=== PATIENT | male | born 1970 | race African-American/Black ===

== ENCOUNTER 2020-04-09 13:02 | Outpatient (CLI) | payer OTHER ==
--- NOTE | 2020-04-09 14:46 | ULT ---
THYROID ULTRASOUND: INDICATION: Thyroid mass. COMPARISON: No comparison studies. FINDINGS: Both lobes of the thyroid are homogeneous and appear normal size and appearance. Right lobe measures 4.7 x 2.1 x 2.0 cm. Left lobe measures 5.6 x 2.2 x 1.9 cm. Isthmus appears normal measuring 0.7 cm. No evidence of nodule or thyroid mass. IMPRESSION: Normal thyroid ultrasound. POS: AGW
== END 2020-04-09 13:03 | disposition home or self-care (01) ==
LOC: BICULT 13:02
PROVIDERS: ATTEND Specialist
DX: E07.89 Other specified disorders of thyroid (principal)
CPT/HCPCS: 76536

== ENCOUNTER 2020-07-17 17:43 | Emergency (ER) | payer OTHER ==
[2020-07-17 18:30] LABS: #Lymphocytes 1.7 thou/uL (1.20-3.40); #Monocytes 0.7 thou/uL (0.11-0.59); #Neutrophils 3.5 thou/uL (1.40-6.50); %Basophils 0.8 % (0.0-1.0); %Eosinophils 0.7 % (0.0-10.0); %Lymphocytes 28.1 % (21.0-51.0); %Monocytes 11.2 % (0.0-10.0); %Neutrophils 59.3 % (42.0-75.0); Hemoglobin 14.5 g/dL (14.0-18.0); Mean Corpuscular HGB CONC 33.5 g/dL (32.0-36.0); Mean Corpuscular Hemoglobin 28.8 pg (27.0-31.0); Mean Corpuscular Volume 85.9 fL (78.0-98.0); Mean Platelet Volume 8.2 fL (7.4-10.4); Platelet Count 222 thou/uL (130-400); RBC Distribution Width 13.8 % (11.5-14.5); Red Blood Cell (RBC) Count 5.03 mill/uL (4.70-6.10)
[2020-07-17 18:55] LABS: ALT (SGPT) 14 U/L (8-55); AST (SGOT) 15 U/L (5-34); Albumin 3.9 g/dL (3.5-5.0); Alkaline Phosphatase 71 U/L (40-110); Anion Gap 11 mmol/L (10-20); BUN (Urea Nitrogen) 10 mg/dL (8.9-20.6); Bilirubin, Total 0.4 mg/dL (0.2-1.2); Calc. Creatinine Clearance 0 mL/min (70-130); Calcium 8.5 mg/dL (7.8-10.44); Carbon Dioxide 24 mmol/L (22-29); Chloride 108 mmol/L (98-107); Estimated GFR-MDRD Greater than 90; Globulin 2.5 g/dL (2.4-3.5); Glucose 101 mg/dL (70-105); Potassium 3.7 mmol/L (3.5-5.1); Protein, Total 6.4 g/dL (6.0-8.3); Sodium 139 mmol/L (136-145)
--- NOTE | 2020-07-17 18:56 | RAD ---
4 views left knee: 07/17/2020 COMPARISON: None HISTORY: Pain, trauma FINDINGS: There are severe degenerative changes involving the medial compartment with joint space faby rowing, subchondral sclerosis, and osteophyte formation. Multiple posterior calcified intra-articular loose bodies are noted. There is prominent patellofemoral joint space narrowing with associated osteophyte formation. There is a small knee joint effusion. No displaced fracture or dislocation is seen. IMPRESSION: Prominent multicompartment degenerative joint disease with prominent posterior calcified intra-articular loose bodies.
--- NOTE | 2020-07-17 18:57 | RAD ---
Portable frontal chest radiograph: 07/17/2020 COMPARISON: None HISTORY: Chest pain FINDINGS: Lungs are clear. Heart and mediastinal contours appear within normal limits. IMPRESSION: No acute findings.
--- NOTE | 2020-07-17 20:03 | CT ---
CT BRAIN WITHOUT CONTRAST: 07/17/20 HISTORY: Previous history of stroke. ME, hypertension. Concern for acute stroke. COMPARISON: None. FINDINGS: There is encephalomalacia in the right temporal lobe with mild ipsilateral ex vacuo dilatation of the right temporal horn. The remainder of the ventricular system is otherwise normal. No acute infarct, hemorrhage, midline shift or abnormal extra-axial fluid collections are seen. The bony calvarium is i ntact. The visualized paranasal sinuses and mastoid air cells are well aerated. There is an old infar ct in the superior aspect of the left parietal lobe. IMPRESSION: No CT evidence of acute intracranial process. POS: MZA
--- NOTE | 2020-07-20 13:15 | EKG ---
Test Reason : Blood Pressure : / mmHG Vent. Rate : 088 BPM Atrial Rate : 088 BPM P-R Int : 176 ms QRS Dur : 090 ms QT Int : 346 ms P-R-T Axes : 049 -12 023 degrees QTc Int : 418 ms Normal sinus rhythm Moderate voltage criteria for LVH, may be normal variant Nonspecific ST and T wave abnormality Abnormal ECG Confirmed by OANH Beckwith, CAROL ([id number]), editorial manager DAVID PALM ([id number]) on 07/20/2020 1:15:05 PM Referred By: Confirmed By:CAROL HUGO M.D.
== END 2020-07-17 21:13 | disposition left against medical advice (07) ==
LOC: ERS 17:43
DX: R07.89 Other chest pain (principal); S40.812A Abrasion of left upper arm, initial encounter; S40.811A Abrasion of right upper arm, initial encounter; R22.42 Localized swelling, mass and lump, left lower limb; I10 Essential (primary) hypertension; I25.2 Old myocardial infarction; E78.00 Pure hypercholesterolemia, unspecified; E03.9 Hypothyroidism, unspecified; F41.9 Anxiety disorder, unspecified; F32.9 Major depressive disorder, single episode, unspecified; F17.210 Nicotine dependence, cigarettes, uncomplicated; Y04.8XXA Assault by other bodily force, initial encounter
CPT/HCPCS: 36415; 70450; 71045; 80053; 84484; 85025; 93005

== ENCOUNTER 2020-07-17 23:59 | Observation (INO) | payer OTHER ==
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
[2020-07-18 00:42] LABS: #Basophils 0.1 thou/uL (0.0-0.2); #Eosinphils 0.1 thou/uL (0.0-0.7); #Lymphocytes 2.1 thou/uL (1.20-3.40); #Monocytes 0.8 thou/uL (0.11-0.59); #Neutrophils 3.6 thou/uL (1.40-6.50); %Basophils 0.9 % (0.0-1.0); %Eosinophils 1.3 % (0.0-10.0); %Lymphocytes 31.2 % (21.0-51.0); %Neutrophils 54.6 % (42.0-75.0); Hemoglobin 14.8 g/dL (14.0-18.0); Mean Corpuscular HGB CONC 33.4 g/dL (32.0-36.0); Mean Corpuscular Hemoglobin 28.4 pg (27.0-31.0); Mean Corpuscular Volume 85.3 fL (78.0-98.0); Mean Platelet Volume 9.1 fL (7.4-10.4); Platelet Count 147 thou/uL (130-400); RBC Distribution Width 13.7 % (11.5-14.5); Red Blood Cell (RBC) Count 5.19 mill/uL (4.70-6.10); White Blood Cell (WBC) Count 6.6 thou/uL (4.8-10.8)
[2020-07-18] MEDS ORDERED: Nitroglycerin 0.4 MG TAB 1 EACH ONE (00:53)
[2020-07-18 01:06] LABS: ALT (SGPT) 15 U/L (8-55); AST (SGOT) 16 U/L (5-34); Albumin 3.9 g/dL (3.5-5.0); Alkaline Phosphatase 72 U/L (40-110); Anion Gap 15 mmol/L (10-20); BUN (Urea Nitrogen) 10 mg/dL (8.9-20.6); Bilirubin, Total 0.4 mg/dL (0.2-1.2); CK (CPK) 280 U/L (30-200); Calc. Creatinine Clearance 0 mL/min (70-130); Calcium 8.7 mg/dL (7.8-10.44); Carbon Dioxide 19 mmol/L (22-29); Chloride 109 mmol/L (98-107); Estimated GFR-MDRD Greater than 90; Globulin 2.8 g/dL (2.4-3.5); Glucose 95 mg/dL (70-105); Lipase 42 U/L (8-78); Potassium 3.7 mmol/L (3.5-5.1); Protein, Total 6.7 g/dL (6.0-8.3); Sodium 139 mmol/L (136-145)
[2020-07-18 01:28] LABS: CKMB 1.5 ng/mL (0-6.6)
[2020-07-18 03:14] VITALS: BMI 28.0
[2020-07-18 05:07] LABS: Troponin I 0.012 ng/mL (< 0.028)
[2020-07-18] MEDS ORDERED: Acetaminophen/Codeine 30-300mg Tablet PO PRN (05:59)
[2020-07-18] MEDS ORDERED: Labetalol HCl 100 MG/20 ML VIAL SLOW IVP PRN (06:00)
[2020-07-18] MEDS ORDERED: hydrALAZINE 20 MG/ML VIAL SLOW IVP PRN (06:00)
[2020-07-18] MEDS ORDERED: Cyclobenzaprine 10 MG TAB PO PRN (06:00)
[2020-07-18] MEDS ORDERED: traZODone HCl 50 MG TAB PO PRN (06:00)
[2020-07-18 07:42] LABS: Troponin I 0.022 ng/mL (< 0.028)
[2020-07-18] MEDS ORDERED: Oxybutynin ER 5 MG TAB PO SCH (09:00)
[2020-07-18] MEDS ORDERED: Pregabalin 50 MG CAP PO SCH (09:00)
[2020-07-18] MEDS ORDERED: Hydrochlorothiazide 25 MG TAB PO SCH (09:00)
[2020-07-18] MEDS ORDERED: Valsartan 80 MG TAB PO SCH (09:00)
[2020-07-18] MEDS ORDERED: FLUoxetine HCl 20 MG CAP PO SCH (09:00)
[2020-07-18] MEDS ORDERED: Aspirin 325 mg Enteric Coated Tablet PO SCH (09:00)
[2020-07-18] MEDS ORDERED: Amlodipine 5 MG TAB PO SCH (09:00)
[2020-07-18] MEDS ORDERED: Hydroxychloroquine Sulfate 200 MG TAB PO SCH (09:00)
[2020-07-18 12:03] VITALS: TEMP 97.9
[2020-07-18 12:28] LABS: SARS-CoV-2 MS2 Positive; SARS-CoV-2 N Gene Negative; SARS-CoV-2 S Gene Negative; SARS-CoV-2 by NAA Not Detected (NotDetected); SARS-CoV-2 orf1ab Negative
[2020-07-18 16:47] VITALS: BP 138/99
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
--- NOTE | 2020-07-20 14:08 | EKG ---
Test Reason : Blood Pressure : / mmHG Vent. Rate : 078 BPM Atrial Rate : 078 BPM P-R Int : 176 ms QRS Dur : 074 ms QT Int : 354 ms P-R-T Axes : 048 -16 010 degrees QTc Int : 403 ms Normal sinus rhythm Left ventricular hypertrophy Nonspecific T wave abnormality Abnormal ECG Confirmed by CHEN ALVES ([id number]), telegraph editor DAVID PALM ([id number]) on 07/20/2020 2:07:47 PM Referred By: Confirmed By:CHEN ALVES
== END 2020-07-18 18:46 | disposition home or self-care (01) ==
LOC: ERS 23:59 → 2SW 07-18 02:42
PROVIDERS: ADMIT Internal Medicine; ATTEND Internal Medicine
DX: R07.89 Other chest pain (principal); I25.2 Old myocardial infarction; I10 Essential (primary) hypertension; E03.9 Hypothyroidism, unspecified; E78.00 Pure hypercholesterolemia, unspecified; E78.5 Hyperlipidemia, unspecified; F41.9 Anxiety disorder, unspecified; F32.9 Major depressive disorder, single episode, unspecified; F17.210 Nicotine dependence, cigarettes, uncomplicated; Z79.82 Long term (current) use of aspirin; Z79.899 Other long term (current) drug therapy; Z85.038 Personal history of other malignant neoplasm of large intestine; Z86.73 Personal history of transient ischemic attack (TIA), and cerebral infarction without residual deficits; Z88.8 Allergy status to other drugs, medicaments and biological substances; Z53.29 Procedure and treatment not carried out because of patient's decision for other reasons; Y04.2XXA Assault by strike against or bumped into by another person, initial encounter; Z20.828 Contact with and (suspected) exposure to other viral communicable diseases
CPT/HCPCS: 36415; 80053; 82550; 82553; 83690; 84484; 85025; 87635; 93005; 94760; G0378; U0003

== ENCOUNTER 2020-08-10 20:43 | Observation (INO) | payer OTHER ==
--- NOTE | 2020-08-10 21:22 | RAD ---
XR Chest 1 View Portable History: Chest pain Comparison: Radiograph July 17, 2020 Findings: Lungs are clear. No pneumothorax or effusion. Cardiac silhouette and mediastinal contours a re within normal limits. Small hiatal hernia. Impression: Small hiatal hernia otherwise no acute intrathoracic abnormality.
[2020-08-10 21:27] LABS: #Eosinphils 0.1 thou/uL (0.0-0.7); #Lymphocytes 2.4 thou/uL (1.20-3.40); #Monocytes 0.6 thou/uL (0.11-0.59); #Neutrophils 2.1 thou/uL (1.40-6.50); %Basophils 0.5 % (0.0-1.0); %Eosinophils 1.5 % (0.0-10.0); %Lymphocytes 46.5 % (21.0-51.0); %Monocytes 11.9 % (0.0-10.0); %Neutrophils 39.6 % (42.0-75.0); Hemoglobin 15.6 g/dL (14.0-18.0); Mean Corpuscular Hemoglobin 28.5 pg (27.0-31.0); Mean Corpuscular Volume 86.3 fL (78.0-98.0); Mean Platelet Volume 8.2 fL (7.4-10.4); Platelet Count 224 thou/uL (130-400); RBC Distribution Width 13.3 % (11.5-14.5); Red Blood Cell (RBC) Count 5.49 mill/uL (4.70-6.10); White Blood Cell (WBC) Count 5.2 thou/uL (4.8-10.8)
[2020-08-10 21:42] LABS: ALT (SGPT) 13 U/L (8-55); AST (SGOT) 14 U/L (5-34); Alkaline Phosphatase 78 U/L (40-110); Anion Gap 14 mmol/L (10-20); BUN (Urea Nitrogen) 15 mg/dL (8.9-20.6); Bilirubin, Total 0.3 mg/dL (0.2-1.2); Calc. Creatinine Clearance 0 mL/min (70-130); Calcium 8.7 mg/dL (7.8-10.44); Carbon Dioxide 25 mmol/L (22-29); Chloride 104 mmol/L (98-107); Estimated GFR-MDRD 90; Globulin 2.7 g/dL (2.4-3.5); Glucose 91 mg/dL (70-105); Potassium 3.8 mmol/L (3.5-5.1); Protein, Total 6.7 g/dL (6.0-8.3); Sodium 139 mmol/L (136-145)
--- NOTE | 2020-08-10 23:24 | PDOC.HHP ---
Hospitalist HPI - History of Present Illness chest pain History of Present Illness: PCP: Simona Chen NP Patient is a 50-year-old male past medical history significant for AK, severe CAD, hyperlipidemia, hypertension, and cancer. Patient presents to the ER today after chest pain that lasted approximately 2 hours. It was relieved after aspirin and nitro. Patient states that it felt like a pressure but it did not radiate anywhere. Patient states that he was not doing anything strenuous when it began. He denies diaphoresis, shortness of breath, abdominal pain, contact with sick persons. The patient does state that it did not feel like his past MIs. He has a patient of Dr. Birmingham and says that he is to have stents placed after a plan is formed for his rectal cancer. He has an appointment on Wednesday to discuss his plan regarding the mass in his rectum. It is unclear whether he will be treated surgically or with chemotherapy. ED Course: VITAL SIGNS Sat Aug 10, 2020 20:54 TIFFANIE Issa Jeffery BP: 124/91, MAP: 102, Pulse: 99, Resp: 22, Temp: 98.9 (Oral), Pain: 6, O2 sat: 98 on (Room Air), Time: 08/10/2020 20:54. VITAL SIGNS Sat Aug 10, 2020 22:13 TIFFANIE Issa Jeffery BP: 135/93, MAP: 107, Pulse: 89, Resp: 20, Pain: 4, O2 sat: 96 on (Room Air), Time: 08/10/2020 22:13. VITAL SIGNS Sat Aug 10, 2020 23:12 TIFFANIE Ly Jordan BP: 130/99, MAP: 109, Pulse: 91, Resp: 28, Pain: 4, O2 sat: 97 on (Room Air), Time: 08/10/2020 23:12. Today in the ER they completed an EKG, chest x-ray, and lab work. He was administered no medications while in the ER. Hospitalist ROS - Review of Systems Cardiovascular: reports: chest pain All other systems reviewed; all pertinent +/- noted in HPI/Subj - Medication Medications: Allergies: Compazine tablet, prochlorperazine Current Medications: naproxen tablet : Strength - 500 mg : ORAL Patient Dose: 1 tab(s) Oral every 12 hours PRN. traZODone tablet : Strength - 50 mg : ORAL Patient Dose: 1 tab(s) Oral once a day (at bedtime). acetaminophen-codeine tablet : Strength - 300 mg-30 mg : ORAL Patient Dose: 1 tab(s) Oral every 12 hours PRN. amLODIPine TABLET : Strength - 5 mg : ORAL Patient Dose: 1 tab(s) Oral once a day. cyclobenzaprine tablet : Strength - 10 mg : ORAL Patient Dose: 1 tab(s) Oral once a day PRN.@ night. FLUoxetine capsule : Strength - 20 mg : ORAL Patient Dose: 1 cap(s) Oral once a day. pantoprazole oral tablet,delayed release (DR/EC) : Strength - 40 mg : ORAL Patient Dose: 1 tab(s) Oral once a day. benzonatate capsule : Strength - 200 mg : ORAL Patient Dose: 1 lozenge Oral every 8 hours PRN. Lyrica capsule : Strength - 100 mg : ORAL Patient Dose: 1 cap(s) Oral 2 times a day. nitroglycerin sublingual tablet, sublingual : Strength - 0.4 mg : SUBLINGUAL Patient Dose: 1 tab(s) Oral. oxybutynin chloride tablet extended release 24hr : Strength - 5 mg : ORAL Patient Dose: 1 tab(s) Oral once a day. Plaquenil tablet : Strength - 200 mg : ORAL Patient Dose: 1 tab(s) Oral every 12 hours. valsartan-hydrochlorothiazide tablet : Strength - 320 mg-25 mg : ORAL Patient Dose: 1 tab(s) Oral once a day. 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 Heme/Onc: reports: Cancer (colon) Psych: reports: Anxiety, Depression Endocrine: reports: Hyperthyroidism Other Medical History: lupus - Past Surgical History Past Surgical History: reports: no pertinent history - Family History Family History: reports: no pertinent history - Social History Smoking Status: Current every day smoker Alcohol: reports: Occassional Drugs: reports: none Living Situation: With Family - Exam General Appearance: NAD, awake alert Eye: PERRL ENT: normocephalic atraumatic Neck: supple Heart: RRR, no murmur, no gallops, no rubs Respiratory: CTAB, no wheezes, no rales, no ronchi Gastrointestinal: soft, non-tender, non-distended, normal bowel sounds Extremities - other findings: Swollen left knee, no injury Psychiatric: normal affect, normal behavior Hospitalist Results - Labs Result Diagrams: 08/10/20 21:20 08/10/20 21:20 Lab results: WBC 5.2 thou/uL (4.8-10.8) 08/10/20 21:20 Hgb 15.6 g/dL (14.0-18.0) 08/10/20 21:20 Hct 47.4 % (42.0-52.0) 08/10/20 21:20 MCV 86.3 fL (78.0-98.0) 08/10/20 21:20 Plt Count 224 thou/uL (130-400) 08/10/20 21:20 Neutrophils % 39.6 % (42.0-75.0) L 08/10/20 21:20 Sodium 139 mmol/L (136-145) 08/10/20 21:20 Potassium 3.8 mmol/L (3.5-5.1) 08/10/20 21:20 Chloride 104 mmol/L (98-107) 08/10/20 21:20 Carbon Dioxide 25 mmol/L (22-29) 08/10/20 21:20 BUN 15 mg/dL (8.9-20.6) 08/10/20 21:20 Creatinine 1.06 mg/dL (0.7-1.3) 08/10/20 21:20 Glucose 91 mg/dL (70-105) 08/10/20 21:20 Calcium 8.7 mg/dL (7.8-10.44) 08/10/20 21:20 Total Bilirubin 0.3 mg/dL (0.2-1.2) 08/10/20 21:20 AST 14 U/L (5-34) 08/10/20 21:20 ALT 13 U/L (8-55) 08/10/20 21:20 Alkaline Phosphatase 78 U/L (40-110) 08/10/20 21:20 Troponin I Less than 0.010 ng/mL (< 0.028) 08/10/20 21:20 Serum Total Protein 6.7 g/dL (6.0-8.3) 08/10/20 21:20 Albumin 4.0 g/dL (3.5-5.0) 08/10/20 21:20 - Radiology Interpretation Chest x-ray Status: report reviewed by me Additional Comment: XR Chest 1 View Portable History: Chest pain Comparison: Radiograph July 17, 2020 Findings: Lungs are clear. No pneumothorax or effusion. Cardiac silhouette and mediastinal contours a re within normal limits. Small hiatal hernia. Impression: Small hiatal hernia otherwise no acute intrathoracic abnormality. Hospitalist H&P A/P - Problem (1) Chest pain Code(s): R07.9 - CHEST PAIN, UNSPECIFIED Status: Acute (2) Hyperlipidemia Code(s): E78.5 - HYPERLIPIDEMIA, UNSPECIFIED Status: Chronic (3) Hypertension Code(s): I10 - ESSENTIAL (PRIMARY) HYPERTENSION Status: Chronic (4) Rectal cancer Code(s): C20 - MALIGNANT NEOPLASM OF RECTUM Status: Acute - Plan Plan: Chest pain Monitor patient on telemetry overnight Continue to trend troponins No stress test as patient is known to need cardiac stents Cardiology consult in a.m. Hypertension Monitor vital signs every 4 hours Restart patient's home medications Vital signs currently stable this time Rectal cancer Patient states he has abnormal bowel sounds but they are his normal now with the cancer Has appointment Wednesday with his oncologist to decide treatment VTE and GI prophylaxis in place CODE STATUS: Full Surrogate decision maker is Sulema Papaikou, aunt
[2020-08-11 02:14] LABS: Troponin I 0.024 ng/mL (< 0.028)
[2020-08-11 02:42] VITALS: BMI 27.8
[2020-08-11 05:28] LABS: Troponin I Less than 0.010 ng/mL (< 0.028)
[2020-08-11] MEDS: traMADol HCl 50 MG TAB PO PRN ×2 (05:42→12:33)
[2020-08-11] MEDS ORDERED: traZODone HCl 50 MG TAB PO PRN (07:40)
--- NOTE | 2020-08-11 07:54 | PDOC.HOSPP ---
- Subjective Encounter Date: 08/11/20 Encounter Time: 07:52 Subjective: Patient seen and examined. No new complaints. No overnight events. Patient denies any chest pain, heart palpitations, SOB, light headedness, N/V or abdominal pain. He reports some left knee pain, chronic d/t DJD, takes tramadol prn at home. Requesting tramadol. Discussed known CAD and consult cardiology to determine further course. He understands and has no further questions. - Objective Vital Signs & Weight: Vital Signs (12 hours) Temp Pulse Resp BP Pulse Ox 08/11/20 05:21 97 08/11/20 01:11 98.4 F 82 16 139/90 97 Weight Weight 193 lb 11.2 oz I&O: 08/10/20 08/11/20 08/12/20 06:59 06:59 06:59 Intake Total 188 Output Total 120 Balance 68 Result Diagrams: 08/10/20 21:20 08/10/20 21:20 Hospitalist ROS - Review of Systems Constitutional: denies: fever, chills Respiratory: denies: cough, shortness of breath Cardiovascular: denies: chest pain, palpitations, edema, light headedness Gastrointestinal: denies: nausea, vomiting, abdominal pain, diarrhea Genitourinary: denies: dysuria Neurological: denies: weakness, change in speech, confusion All other systems reviewed; all pertinent +/- noted in HPI/Subj - Medication Medications: Active Medications Generic Name Dose Route Start Last Admin Trade Name Freq PRN Reason Stop Dose Admin Tramadol HCl 50 mg 08/11/20 00:14 08/11/20 05:42 Tramadol Hcl 50 Mg Tab PO 50 mg Q4H PRN Administration Pain - Exam General Appearance: NAD, awake alert Eye: anicteric sclera ENT: normocephalic atraumatic Neck: supple, symmetric Heart: RRR, no murmur, no gallops, no rubs, normal peripheral pulses Respiratory: CTAB, no wheezes, no rales, no ronchi, normal chest expansion, no tachypnea Gastrointestinal: soft, non-tender, normal bowel sounds, no guarding, no rigidity Extremities: no cyanosis, no edema Extremities - other findings: Left knee swollen, chonic Skin: no rashes Neurological: no new deficit Psychiatric: normal affect, A&O x 3 Hosp A/P (1) Chest pain Code(s): R07.9 - CHEST PAIN, UNSPECIFIED Status: Acute (2) Hypertension Code(s): I10 - ESSENTIAL (PRIMARY) HYPERTENSION Status: Chronic (3) Hyperlipidemia Code(s): E78.5 - HYPERLIPIDEMIA, UNSPECIFIED Status: Chronic (4) Rectal cancer Code(s): C20 - MALIGNANT NEOPLASM OF RECTUM Status: Chronic (5) SLE (systemic lupus erythematosus) Code(s): M32.9 - SYSTEMIC LUPUS ERYTHEMATOSUS, UNSPECIFIED Status: Chronic (6) Anxiety and depression Code(s): F41.9 - ANXIETY DISORDER, UNSPECIFIED; F32.9 - MAJOR DEPRESSIVE DISORDER, SINGLE EPISODE, UNSPECIFIED Status: Chronic (7) GERD (gastroesophageal reflux disease) Code(s): K21.9 - GASTRO-ESOPHAGEAL REFLUX DISEASE WITHOUT ESOPHAGITIS Status: Chronic - Plan # Chest pain troponins flat continue ASA check FLP NPO Cardiology consult pending, Dr. Bowman Sees Dr. Birmingham, had appointment wednesday to discuss plan for cardiac catheterization. #HTN BP stable. Continue Norvasc home medication. Restart valsartan/HCTZ home medication. Continue to monitor BP. #HLD Patient not on statin therapy no recent FLP for comparison. Will order FLP. #Rectal CA Recently diagnosed, no plan at this time per patient. #SLE restart home dose of plaquenil #Anxiety and Depression Denies SI/HI. Restart home dose of lyrica and prozac. Other chronic conditions per H&P.
[2020-08-11 08:27] LABS: Cardiac Risk 5.3 (Less than 4.5)
[2020-08-11] MEDS ORDERED: Pregabalin 50 MG CAP PO SCH (09:00)
[2020-08-11] MEDS ORDERED: Hydrochlorothiazide 25 MG TAB PO SCH (09:00)
[2020-08-11] MEDS ORDERED: Oxybutynin ER 5 MG TAB PO SCH (09:00)
[2020-08-11] MEDS ORDERED: Nicotine 21 MG PATCH TD SCH (09:00)
[2020-08-11] MEDS ORDERED: Amlodipine 5 MG TAB PO SCH (09:00)
[2020-08-11] MEDS ORDERED: FLUoxetine HCl 20 MG CAP PO SCH (09:00)
[2020-08-11] MEDS ORDERED: Aspirin 325 mg Enteric Coated Tablet PO SCH (09:00)
[2020-08-11] MEDS ORDERED: Hydroxychloroquine Sulfate 200 MG TAB PO SCH (09:00)
[2020-08-11] MEDS ORDERED: FLU VACC QS2020-21(6MOS UP)/PF 60 MCG/0.5 ML SYRINGE IM ONE (09:00)
[2020-08-11] MEDS ORDERED: Valsartan 80 MG TAB PO SCH (09:00)
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
[2020-08-11 16:15] LABS: SARS-CoV-2 MS2 Positive; SARS-CoV-2 N Gene Negative; SARS-CoV-2 S Gene Negative; SARS-CoV-2 by NAA Not Detected (NotDetected); SARS-CoV-2 orf1ab Negative
[2020-08-11 17:15] VITALS: BP 110/75; TEMP 98.3
--- NOTE | 2020-08-12 11:19 | DIS ---
DATE OF ADMISSION: 08/11/2020 DATE OF DISCHARGE: 08/11/2020 DISCHARGE DIAGNOSES: 1. Chest pain. 2. Hypertension. 3. Hyperlipidemia. 4. Rectal cancer. 5. Systemic lupus erythematosus. 6. Anxiety and depression. BRIEF HOSPITAL COURSE: This is a 50-year-old male patient with a history of colon cancer, who presents with chest pain on the day of admission. Initial evaluation was negative for troponins, EKG changes, and chest x-ray showed no acute events. He was admitted for stress test on the day after which turned out negative. 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 DISCHARGE EXAMINATION: GENERAL: The patient is in bed, no acute distress. CARDIOVASCULAR: S1 and S2 present. No murmurs, gallops, or rubs. RESPIRATORY SYSTEM: Air entry adequate bilaterally. ABDOMEN: Benign. EXTREMITIES: No edema. CONSULTANTS: Dr. Bowman - Cardiology. DISCHARGE CONDITION: Stable. Job ID: [id number]
== END 2020-08-11 17:37 | disposition home or self-care (01) ==
LOC: ERS 20:43 → 2SW 08-11 01:32
PROVIDERS: ADMIT Internal Medicine; ATTEND Internal Medicine
DX: R07.89 Other chest pain (principal); I10 Essential (primary) hypertension; E78.5 Hyperlipidemia, unspecified; C20 Malignant neoplasm of rectum; M32.9 Systemic lupus erythematosus, unspecified; F41.9 Anxiety disorder, unspecified; F32.9 Major depressive disorder, single episode, unspecified; E03.9 Hypothyroidism, unspecified; I25.10 Atherosclerotic heart disease of native coronary artery without angina pectoris; I25.2 Old myocardial infarction; F17.200 Nicotine dependence, unspecified, uncomplicated; Z79.82 Long term (current) use of aspirin; Z79.899 Other long term (current) drug therapy; Z86.73 Personal history of transient ischemic attack (TIA), and cerebral infarction without residual deficits; Z88.8 Allergy status to other drugs, medicaments and biological substances; Z20.828 Contact with and (suspected) exposure to other viral communicable diseases
CPT/HCPCS: 36415; 71045; 80053; 80061; 84484; 85025; 87635; 90471; 90662; 90732; 93005; 94760; G0008; G0009; G0378; U0003